=== PATIENT | female | born 1955 | race Caucasian/White ===

== ENCOUNTER 2018-11-23 19:50 | Observation (INO) ==
[2018-11-23] MEDS ORDERED: Furosemide 20 MG/2 ML VIAL IVP ONE (22:32)
[2018-11-23 22:59] LABS: Basophils # 0.1 K/mcL (0.0-0.2); Basophils % 0.9 %; Eosinophils # 0.2 K/mcL (0.0-0.6); Eosinophils % 3.2 %; Hematocrit 23.5 % (35.3-44.9); Hemoglobin 6.7 g/dL (11.5-15.4); Immature Granulocytes % 0.7 % (0-4); Lymphocytes # 1.5 K/mcL (0.6-4.6); Lymphocytes % 27.4 %; Mean Corpuscular HGB Conc 28.5 g/dL (31.6-35.5); Mean Corpuscular Hemoglobin 23.6 pg (28.0-33.3); Mean Corpuscular Volume 82.7 fL (83.0-100.0); Mean Platelet Volume 9.4 fL (9.4-12.4); Monocytes # 0.6 K/mcL (0.0-1.3); Monocytes % 10.5 %; Neutrophils # 3.2 K/mcL (1.6-8.9); Platelet Count 293 K/mcL (140-400); Red Blood Count 2.84 M/mcL (3.82-4.97); Red Cell Distribution Width 16.3 % (11.5-14.5); Segmented Neutrophils % 57.3 %
[2018-11-23 23:12] LABS: Prothrombin Time 10.8 Seconds (9.4-12.1)
[2018-11-23] MEDS ORDERED: Albuterol 2.5 MG/3 ML NEBULIZER IH PRN (23:16)
[2018-11-23 23:18] LABS: Alanine Aminotransferase 18 Units/L (7-52); Albumin 3.9 g/dL (3.5-5.7); Albumin/Globulin Ratio 1.5 (1.1-2.2); Alkaline Phosphatase 80 Units/L (34-104); Aspartate Amino Transferase 17 Units/L (13-39); BUN/Creatinine Ratio 15 (6-26); Bilirubin,Direct 0.1 mg/dL (0.0-0.2); Bilirubin,Indirect 0.4 mg/dL (0.0-1.2); Bilirubin,Total 0.5 mg/dL (0.3-1.0); Blood Urea Nitrogen 12 mg/dL (8-23); Calcium 8.5 mg/dL (8.6-10.3); Carbon Dioxide 24 mEq/L (23-29); Chloride 104 mEq/L (98-107); Globulin 2.6 g/dL (2.4-3.5); Glucose 99 mg/dL (70-105); Osmolality,Calculated 290 (280-300); Potassium 3.5 mEq/L (3.5-5.1); Sodium 140 mEq/L (136-145); Total Protein 6.5 g/dL (6.4-8.9); eGFR For Non-African Americans > 60 (> 60)
[2018-11-23] MEDS: Pantoprazole 40 MG in 0.9 % Sodium Chloride Mini Bag 100 ML IVC SCH (23:20)
--- NOTE | 2018-11-23 23:20 | Internal Med History&Physical ---
Date of Encounter: 11/23/18 Time of Encounter: 23:18 Internal Medicine - H&P: HPI Chief complaint: low Hgb Admitted From: Hospital to Hospital Transfer Plans for Post Hospital Care: Home History of present illness: Lizeth Arellano is a 63-year-old woman who reports a history of gastric ulcer and H. pylori in the past who presents on transfer from [facility] where she went to upon recommendation by her PCP after finding her to have a low hemoglobin at 6.2. At the time she arrived [facility] her hemoglobin was now 5.8 with the rest of her labs unremarkable. She was given 1 unit of red blood cells prior to her transfer over here. On arrival she tells me she feels well and has no complaints. She does admit to feeling notably more fatigued and tired over the past few weeks but denies abdominal pain. She states that she has had multiple episodes of coffee-ground emesis over the past couple of weeks to months but never sought medical attention for it. She denies melena. Past Med Surg Social Fam HX - Past Medical History Medical history: GERD, GI bleed, hypertension, thyroid disease, other Psychiatric history: anxiety, bipolar, depression, PTSD - Past Surgical History Surgical History: appendectomy, cholecystectomy, hysterectomy Additional surgical history: bilateral hip replacement - Social History Smoking Status: Former smoker Smokeless Tobacco Status: No Alcohol use: none Drug use: none - Family History Father Living Status: Internal Medicine - H&P: Meds Levothyroxine [Synthroid] 75 mcg PO 0630 09/20/17 [History] Lisinopril/Hydrochlorothiazide [Zestoretic 20-25 mg Tablet] 1 tab PO DAILY 09/20/17 [History] Metoprolol [Lopressor] 50 mg PO DAILY 09/20/17 [History] Tramadol HCl [Ultram] 50 mg PO Q6H PRN 09/20/17 [History] Trazodone HCl 300 mg PO HS 09/20/17 [History] lamoTRIgine [Lamotrigine] 200 mg PO BID 09/20/17 [History] Docusate [Colace] 200 mg PO BID 14 Days #28 capsule 01/15/18 [Rx] Ibuprofen 800 mg PO 1-3XD PRN #42 tablet 01/15/18 [Rx] OxyCODONE/APAP 5/325 [Percocet 5/325 MG] 2 each PO Q6HR PRN 7 Days #56 tablet 01/15/18 [Rx] Albuterol Sulfate [Ventolin Hfa] 90 mcg IH PRN PRN 11/23/18 [History] Budesonide/Formoterol 80/4.5 [Symbicort 80/4.5] 2 puff IH BID 11/23/18 [History] Gabapentin [Gralise] 300 mg PO DAILY 11/23/18 [History] Loratadine [Allergy Relief] 10 mg PO DAILY 11/23/18 [History] Pramipexole [Mirapex] 0.5 mg PO HS 11/23/18 [History] Allergy/AdvReac Type Severity Reaction Status Date / Time Penicillins Allergy Swelling Verified 12/31/17 12:00 of Lip/Tongue/Throat Sulfa (Sulfonamide Allergy Swelling Verified 12/31/17 12:00 Antibiotics) of Lip/Tongue/Throat All Systems PM: A 10-system review of systems was performed and is negative for pertinent findings except as documented above in the HPI. - Constitutional Vitals: Temp Pulse Resp BP Pulse Ox 99.1 F 77 14 175/91 97 11/23/18 21:55 11/23/18 21:55 11/23/18 21:55 11/23/18 22:17 11/23/18 22:19 Exam: Vitals: Reviewed General: well-developed white female in no acute distress. Skin: warm and supple. HEENT: Moist mucous membranes. + conjunctivae pallor. Neck: No lymphadenopathy. No JVD. No carotid bruits. No palpable thyroid. Chest: Normal thoracic expansion. Normal breath sounds. Clear to auscultation. Heart: Normal S1 & S2; rhythmic. No rubs or murmurs. Abdomen: Non-distended, soft and non-tender to palpation. No peritoneal reaction. Extremities: No clubbing, cyanosis. 1+ edema. No calf tenderness. Normal distal pulses. Neurological: Awake, alert and oriented to person, place and time. No focal deficits. Psych: Affect appropriate. Internal Med - H&P Results - Labs CBC & Chem 7: 11/23/18 22:49 Labs: Short CBC 11/23/18 Range/Units 22:49 WBC 5.6 (4.3-11.1) K/mcL Hgb 6.7 L (11.5-15.4) g/dL Hct 23.5 L (35.3-44.9) % Plt Count 293 (140-400) K/mcL - Assessment and plan (1) Symptomatic anemia Current Visit: Yes Status: Acute Assessment and plan: Secondary to upper GI bleed as reported by the patient but never sought medical attention. Hgb s/p 1pRBC is 6.7. Will order another unit of blood and recheck her values in the morning. Start PPI drip. Consult GI in the morning and keep NPO in the interim. (2) HTN (hypertension) Current Visit: Yes Status: Acute Assessment and plan: Poorly controlled as the patient reports poor adherence. Will continue to monitor. Will give her 1 dose of furosemide 20mg as she has peripheral edema, just received a unit of blood and is quite hypertensive. Home oral medications can be resumed as of tomorrow. Qualifiers: Hypertension type: essential hypertension Qualified Code(s): I10 - Essential (primary) hypertension (3) COPD (chronic obstructive pulmonary disease) Current Visit: Yes Status: Chronic Assessment and plan: Will continue daily LABA/ICS and DYLAN prn. States that she quit smoking as her new year's resolution. Continued counseling and reinforcement given. Qualifiers: COPD type: unspecified COPD Qualified Code(s): J44.9 - Chronic obstructive pulmonary disease, unspecified (4) DVT prophylaxis Current Visit: Yes Status: Acute Assessment and plan: IPC ordered. - Time Spent With Patient Total time spent is greater than 50% in coordination of care (as documented) at patient's floor/unit and/or counseling patient: Greater than 35 minutes
[2018-11-23 23:38] LABS: Anisocytosis 1+ (Not Present); Hypochromasia Present (Not Present); Platelet Estimate Normal (Normal)
[2018-11-23 23:39] LABS: Microcytosis Present (Not Present)
[2018-11-23] MEDS ORDERED: 0.9 % Sodium Chloride 250 ML ONE (23:39)
[2018-11-24] MEDS: lamoTRIgine 100 MG TABLET PO SCH ×2 (02:01→20:05)
[2018-11-24] MEDS: traZODone 50 MG TABLET PO SCH ×2 (02:01→20:05)
[2018-11-24] MEDS: Pantoprazole 40 MG in 0.9 % Sodium Chloride Mini Bag 100 ML IVC SCH ×2 (05:06→08:44)
[2018-11-24 06:35] LABS: Basophils # 0.1 K/mcL (0.0-0.2); Basophils % 1.1 %; Eosinophils # 0.2 K/mcL (0.0-0.6); Eosinophils % 3.2 %; Hematocrit 26.7 % (35.3-44.9); Hemoglobin 7.8 g/dL (11.5-15.4); Immature Granulocytes % 0.6 % (0-4); Lymphocytes # 1.4 K/mcL (0.6-4.6); Lymphocytes % 26.8 %; Mean Corpuscular HGB Conc 29.2 g/dL (31.6-35.5); Mean Corpuscular Volume 82.2 fL (83.0-100.0); Mean Platelet Volume 9.6 fL (9.4-12.4); Monocytes # 0.6 K/mcL (0.0-1.3); Monocytes % 10.7 %; Neutrophils # 3.1 K/mcL (1.6-8.9); Platelet Count 286 K/mcL (140-400); Red Blood Count 3.25 M/mcL (3.82-4.97); Red Cell Distribution Width 15.9 % (11.5-14.5); Segmented Neutrophils % 57.6 %
[2018-11-24] MEDS: Acetaminophen 325 MG TABLET PO PRN ×2 (06:47→21:59)
[2018-11-24] MEDS: Budesonide/Formoterol 80/4.5 MDI IH SCH ×2 (07:46→20:17)
[2018-11-24] MEDS: *HR* OxyCODONE/APAP 5/325 TABLET PO PRN ×3 (08:42→23:05)
[2018-11-24] MEDS: Loratadine 10 MG TABLET PO SCH (08:42)
[2018-11-24] MEDS: Ondansetron 4 MG/2 ML VIAL IVP PRN ×2 (08:53→15:12)
--- NOTE | 2018-11-24 12:40 | Gastroenterology Consult Note ---
Date of Encounter: 11/24/18 Time of Encounter: 12:30 - Assessment and plan (1) Symptomatic anemia Current Visit: Yes Status: Acute Assessment and plan: Patient has severe microcytic anemia along with the on-and-off vomiting of the blood and also dysphagia. Does has large hiatal hernia. Recommend the doing an EGD to rule out the peptic ulcer disease/esophagitis/peptic stricture. Follow H&H agree with transfusion. Pt advised not to have any NSAID and if she needs anything then take plain Tylenol. - Time Spent With Patient Total time spent is greater than 50% in coordination of care (as documented) at patient's floor/unit and/or counseling patient: GI History of Present Illness - Data of Consult Requesting Physician: Kanwal Pearson MD - Consult Narrative History of present illness: 63-year-old woman who reports a history of gastric ulcer and H. pylori in the past who presents on transfer from [facility] where she went to upon recommendation by her PCP after finding her to have a low hemoglobin at 6.2. At the time she arrived [facility] her hemoglobin was now 5.8 with the rest of her labs unremarkable. She was given 1 unit of red blood cells prior to her transfer over here. Vomiting on and off since 2017 ,sometimes the vomitus will have blood .she vomited large amount of blood 2 weeks ago and again last week. Last couple of days she has been feeling very weak and tired. Per patient she takes Motrin for her arthritis and also she complained of food sometime hanging in her throat. Denies any blood in the stool. Does admit of having some tenderness in the epigastric and right upper quadrant area and does feel like some cramps more like in the form of charley horses in upper abdomen. had EGD and colonoscopy done in 2017 EGD showed a large hiatal hernia and a small ulcer and colonoscopy showed internal hemorrhoids and a small polyp Past Med Surg Social Fam HX - Past Medical History Medical history: GERD, GI bleed, hypertension, thyroid disease, other Psychiatric history: anxiety, bipolar, depression, PTSD - Past Surgical History Surgical History: appendectomy, cholecystectomy, hysterectomy Additional surgical history: bilateral hip replacement - Social History Smoking Status: Former smoker Smokeless Tobacco Status: No Alcohol use: none Drug use: none - Family History Father Living Status: Review of Systems: GI: as per [facility] [place] GENERAL: has some chills. feeling weak and tired EYES: denies yellow discoloration ENT: difficulty swallowing CARDIO: denies chest pain, palpitations RESP: Shortness of breath with exertion : has change in color of urine and smell NEURO: Generalized weakness HEME: Denies any bruising MS: Has joint pain due to arthritis and taking ibuprofen. DERM: We will have sometime itching or rash on the upper chest and neck area PSYCH: has anxiety - Constitutional Vitals: Temp Pulse Resp BP Pulse Ox 98.1 F 76 16 156/95 97 11/24/18 10:04 11/24/18 10:04 11/24/18 10:04 11/24/18 10:04 11/24/18 10:04 Exam: CONSTITUTIONAL:alert, no acute distress.HEAD:normocephalic.EYES:no jaundice.NECK:no obvious swelling.HEART:regular rate and rhythm, no murmurs.LUNGS:bilateral good air entry.ABDOMEN:non distended, soft, mild epigastric right upper quadrant tanderness, no masses pulpable, no organomegaly. Large surgical scar of gallbladder surgeryRECTAL EXAM:Deferred.EXTREMITIES:no clubbing, cyanosis or edema.SKIN:no stigmata of chronic liver disease. Large tattoo on the right shoulderNEUROLOGIC:no obvious focal defect. Results - Labs CBC & Chem 7: 11/24/18 05:54 11/23/18 22:49 Labs: Last Result Calcium 8.5 mg/dL (8.6-10.3) L 11/23/18 22:49 Entire Visit Hgb 7.8 g/dL (11.5-15.4) L 11/24/18 05:54 Hct 26.7 % (35.3-44.9) L 11/24/18 05:54 PT 10.8 Seconds (9.4-12.1) 11/23/18 22:49 Total Bilirubin 0.5 mg/dL (0.3-1.0) 11/23/18 22:49 AST 17 Units/L (13-39) 11/23/18 22:49 ALT 18 Units/L (7-52) 11/23/18 22:49 - ABG ABG results: PT/INR, D-dimer PT 10.8 Seconds (9.4-12.1) 11/23/18 22:49 Consult Discharge Plan - Plan Referrals: Krystle Ruiz [Primary Care Provider] -
--- NOTE | 2018-11-24 12:48 | Anesthesia Evaluation PreOp ---
Date of Encounter: 11/24/18 Time of Encounter: 13:06 - Past History Planned Operation: EGD Cardiac History: Denies any Significant Hx (ds) Pulmonary History: Former smoker SUPERVISOR ADVICE History: Other (Anxiety/Depression, PTSD) Other Medical History: Thyroid, GERD (Hx H.Pylori, GI Bleed,) Anesthesia History: No Prior Anesthetic Complications, Past Anesthesia (Appy, Estephania, Hyster, B-Hyster) Alcohol Use: none Drug use: none Medications and Allergies Levothyroxine [Synthroid] 75 mcg PO 0630 09/20/17 [History] Lisinopril/Hydrochlorothiazide [Zestoretic 20-25 mg Tablet] 1 tab PO DAILY 08/24 [History] Metoprolol [Lopressor] 50 mg PO DAILY 09/20/17 [History] Tramadol HCl [Ultram] 50 mg PO Q6H PRN 09/20/17 [History] Trazodone HCl 300 mg PO HS 09/20/17 [History] lamoTRIgine [Lamotrigine] 200 mg PO BID 09/20/17 [History] Docusate [Colace] 200 mg PO BID 14 Days #28 capsule 01/15/18 [Rx] Ibuprofen 800 mg PO 1-3XD PRN #42 tablet 01/15/18 [Rx] OxyCODONE/APAP 5/325 [Percocet 5/325 MG] 2 each PO Q6HR PRN 7 Days #56 tablet 01/15/18 [Rx] Albuterol Sulfate [Ventolin Hfa] 90 mcg IH PRN PRN 11/23/18 [History] Budesonide/Formoterol 80/4.5 [Symbicort 80/4.5] 2 puff IH BID 11/23/18 [History] Gabapentin [Gralise] 300 mg PO DAILY 11/23/18 [History] Loratadine [Allergy Relief] 10 mg PO DAILY 11/23/18 [History] Pramipexole [Mirapex] 0.5 mg PO HS 11/23/18 [History] Allergy/AdvReac Type Severity Reaction Status Date / Time Penicillins Allergy Swelling Verified 12/31/17 12:00 of Lip/Tongue/Throat Sulfa (Sulfonamide Allergy Swelling Verified 12/31/17 12:00 Antibiotics) of Lip/Tongue/Throat - Meds/Allergy Pre-op Review Medications Reviewed: Yes Allergies Reviewed: Yes Beta Blockers on Current Med List: No Anesthesia Results - Labs 11/24/18 05:54 11/23/18 22:49 Laboratory Result - Imaging EKG: report reviewed (53bpm - SINUS BRADYCARDIA MINIMAL VOLTAGE CRITERIA FOR LVH Electronically Signed On 01-01-2018 7:20:00 EDT by Marvin Kahn MD), image reviewed Anesthesia Exam Vital Signs Temp Pulse Resp BP Pulse Ox 11/24/18 12:47 98.0 F 71 16 138/77 99 11/24/18 10:04 98.1 F 76 16 156/95 97 11/24/18 07:47 16 98 11/24/18 06:47 97.7 F 72 16 108/62 96 11/24/18 02:47 98.4 F 86 18 123/78 100 11/24/18 00:30 98.7 F 92 16 156/82 100 11/24/18 00:15 98.8 F 77 16 142/85 97 11/23/18 22:19 97 11/23/18 22:17 175/91 11/23/18 21:55 99.1 F 77 14 178/94 97 Intake and Output 11/23/18 11/24/18 11/24/18 23:59 07:59 15:59 Intake Total 450 / 450 100 / 100 Output Total 650 / 650 1999 / 1999 Balance -200 / -200 -1900 / -1900 Intake: IV Fluids 100 / 100 100 / 100 Protonix 40 MG In 0.9 % Sodium 100 / 100 100 / 100 Chloride (Mini-Bag +) 100 ML @ 20 mls/hr IVC .Q5H [facility] Rx#: [id number] Blood Product 350 / 350 Rbcs Leuko Poor As-1 Unit 350 / 350 [id number] Output: Urine 650 / 650 1999 Other: Meal npo # Voids 1 2 Weight 98.3 kg Blood Glucose* 101 99 Height: 5'7" Weight: 216# BMI = 34 NPO (# of Hours): MNoc - HEENT Pupil (Motor): Pupils equal, EOMI Mallampati: III Teeth: Edentulous Oral Opening: Greater than 3 - SUPERVISOR ADVICE LOC: Oriented SUPERVISOR ADVICE Motor: Normal RUE, Normal LUE, Normal RLE, Normal LLE, Normal Face SUPERVISOR ADVICE Sensory: Normal: RUE, LUE, RLE, LLE, Face - Cardiac Rhythm: Regular Murmur: None JVD: No - Pulmonary Breath Sounds: bilateral Clear Respiratory Effort: Symmetrical Anesthesia Assess/Plan ASA Score: 3 Level of consciousness: Cooperative, Oriented, Tranquil Anesthetic Plan: MAC Monitoring Plan: Standard Monitors Recovery Plan: PACU Anes Supervising Prov Stmt: PT seen/evaluated R&B Discussed questions answered and consent obtained. Freddy Lewis MD
--- NOTE | 2018-11-24 12:50 | Internal Med Progress Note ---
Hospitalist Progress Note - Encounter Date of Encounter: 11/24/18 Time of Encounter: 09:00 - Subjective Interval History: Patient feels better after transfusion. Denies nausea, abdominal pain, dizziness, or shortness of breath. In no acute distress. Vital signs stable - Exam Vitals: Temp Pulse Resp BP Pulse Ox 98.0 F 71 16 138/77 99 11/24/18 12:47 11/24/18 12:47 11/24/18 12:47 11/24/18 12:47 11/24/18 12:47 Exam: Vitals: Reviewed General: well-developed white female in no acute distress. Skin: warm and supple. HEENT: Moist mucous membranes. + conjunctivae pallor. Neck: No lymphadenopathy. No JVD. No carotid bruits. No palpable thyroid. Chest: Normal thoracic expansion. Normal breath sounds. Clear to auscultation. Heart: Normal S1 & S2; rhythmic. No rubs or murmurs. Abdomen: Non-distended, soft and non-tender to palpation. No peritoneal reaction. Extremities: No clubbing, cyanosis. 1+ edema. No calf tenderness. Normal distal pulses. Neurological: Awake, alert and oriented to person, place and time. No focal deficits. Psych: Affect appropriate. - Assessment and Plan (1) Symptomatic anemia Current Visit: Yes Status: Acute Assessment and Plan: Improved after transfusion. Suspect GI bleed. Previous lab in 2017 suggest iron deficiency. - Continue nothing by mouth, IV PPI - Closely monitor vitals and H&H - GI consult saw patient (2) HTN (hypertension) Current Visit: Yes Status: Acute Assessment and Plan: Consider resume home medication when patient started diet (3) COPD (chronic obstructive pulmonary disease) Current Visit: Yes Status: Chronic Assessment and Plan: Will continue daily LABA/ICS and DYLAN prn. States that she quit smoking as her new year's resolution. Continued counseling and reinforcement given. No signs of exacerbation. (4) DVT prophylaxis Current Visit: Yes Status: Acute Assessment and Plan: EPCDs DVT Prophylaxis: EPCDs - Time Spent with Patient Total time spent is greater than 50% in coordination of care (as documented) at patient's floor/unit and/or counseling patient: 30 min 25 - 35 minutes Plan of Care Discussed with: patient Internal Medicine: Result - Labs CBC & Chem 7: 11/24/18 05:54 11/23/18 22:49 Labs: Short CBC 11/23/18 11/24/18 Range/Units 22:49 05:54 WBC 5.6 5.3 (4.3-11.1) K/mcL Hgb 6.7 L 7.8 L (11.5-15.4) g/dL Hct 23.5 L 26.7 L (35.3-44.9) % Plt Count 293 286 (140-400) K/mcL Neutrophils # 3.2 3.1 (1.6-8.9) K/mcL BMP 11/23/18 22:49 Sodium 140 Potassium 3.5 Chloride 104 Carbon Dioxide 24 BUN 12 Creatinine 0.80 Glucose 99 Calcium 8.5 L Liver Function 11/23/18 Range/Units 22:49 Total Bilirubin 0.5 (0.3-1.0) mg/dL Direct Bilirubin 0.1 (0.0-0.2) mg/dL AST 17 (13-39) Units/L ALT 18 (7-52) Units/L Alkaline Phosphatase 80 (34-104) Units/L Albumin 3.9 (3.5-5.7) g/dL - ABG Interpretation ABG results: PT/INR, D-dimer PT 10.8 Seconds (9.4-12.1) 11/23/18 22:49 Consult Discharge Plan - Plan Referrals: Krystle Ruiz [Primary Care Provider] - (2) HTN (hypertension) Qualifiers: Qualified Code(s): I10 - Essential (primary) hypertension (3) COPD (chronic obstructive pulmonary disease) Qualifiers: Qualified Code(s): J44.9 - Chronic obstructive pulmonary disease, unspecified
[2018-11-24] MEDS ORDERED: Lidocaine -MPF 2% 2 ML VIAL ONE (12:52)
[2018-11-24] MEDS ORDERED: *HR* Propofol 200 MG/20 ML VIAL IVP ONE (12:52)
[2018-11-24] MEDS ORDERED: Tetracaine/Benzocaine/Butamben 1 SPRAY AEROSOL MM ONE (13:16)
[2018-11-24] MEDS: Simethicone 40 MG/0.6 ML MLS IR ONE (13:21)
[2018-11-24] MEDS ORDERED: SODIUM CHLORIDE/NAHCO3/KCL/PEG 4,000 ML SOLN.RECON PO ONE (14:09)
--- NOTE | 2018-11-24 16:25 | Anesthesia Evaluation Post Op ---
Date of Encounter: 11/24/18 Time of Encounter: 13:25 - Vital Signs Vital Signs: Vital Signs/O2 Sat/Glucose, Most Current Temp Pulse Resp BP Pulse Ox 11/24/18 14:15 98.3 F 67 16 156/92 98 11/24/18 14:00 97.9 F 16 135/83 94 11/24/18 12:47 98.0 F 71 16 138/77 99 - Lungs Lungs: Clear Ascult./Percussion - Airway Airway: Non-obstructed - Cardiovascular Regular Rate - Mental Status Mental Status: Alert & Oriented, Answers Appropriately - Pain Pain Scale: 0 Pain Scale used: Numeric (1 - 10) - Nausea Vomiting Nausea Vomiting: Not Present - Hydration Hydration: NPO, Has not voided - Discharge PostOp Status: Transfer Patient to floor Anes Supervising Prov Stmt: Pt seen/evalutaed, VSS and has met criteira for discharge to floor. - MD Joshua
[2018-11-24 16:53] LABS: Hematocrit 29.4 % (35.3-44.9); Hemoglobin 8.6 g/dL (11.5-15.4)
[2018-11-24] MEDS: Pantoprazole 40 MG VIAL IVP SCH (20:05)
[2018-11-24] MEDS ORDERED: traZODone 50 MG TABLET PO SCH (21:00)
[2018-11-24] MEDS ORDERED: lamoTRIgine 100 MG TABLET PO SCH (21:00)
[2018-11-25] MEDS: Pantoprazole 40 MG VIAL IVP SCH ×2 (05:48→17:01)
[2018-11-25] MEDS: Ondansetron 4 MG/2 ML VIAL IVP PRN ×3 (05:53→22:54)
[2018-11-25 07:07] LABS: Basophils % 0.9 %; Eosinophils # 0.2 K/mcL (0.0-0.6); Eosinophils % 3.8 %; Hemoglobin 7.6 g/dL (11.5-15.4); Immature Granulocytes % 0.2 % (0-4); Lymphocytes # 1.4 K/mcL (0.6-4.6); Lymphocytes % 32.4 %; Mean Corpuscular HGB Conc 29.2 g/dL (31.6-35.5); Mean Platelet Volume 9.4 fL (9.4-12.4); Monocytes # 0.5 K/mcL (0.0-1.3); Monocytes % 10.6 %; Neutrophils # 2.2 K/mcL (1.6-8.9); Platelet Count 244 K/mcL (140-400); Red Blood Count 3.17 M/mcL (3.82-4.97); Red Cell Distribution Width 15.9 % (11.5-14.5); Segmented Neutrophils % 52.1 %
[2018-11-25 07:22] LABS: BUN/Creatinine Ratio 10 (6-26); Blood Urea Nitrogen 8 mg/dL (8-23); Calcium 8.4 mg/dL (8.6-10.3); Carbon Dioxide 24 mEq/L (23-29); Chloride 110 mEq/L (98-107); Glucose 89 mg/dL (70-105); Osmolality,Calculated 288 (280-300); Potassium 3.7 mEq/L (3.5-5.1); Sodium 140 mEq/L (136-145); eGFR For Non-African Americans > 60 (> 60)
[2018-11-25] MEDS: *HR* OxyCODONE/APAP 5/325 TABLET PO PRN ×3 (07:52→22:54)
[2018-11-25] MEDS: Loratadine 10 MG TABLET PO SCH (07:52)
[2018-11-25] MEDS ORDERED: Furosemide 20 MG/2 ML VIAL IVP ONE (09:34)
[2018-11-25] MEDS ORDERED: 0.9 % Sodium Chloride 250 ML ONE (10:13)
[2018-11-25] MEDS: Budesonide/Formoterol 80/4.5 MDI IH SCH ×2 (10:20→20:36)
[2018-11-25] MEDS ORDERED: Simethicone 40 MG/0.6 ML MLS IR ONE (12:29)
[2018-11-25] MEDS ORDERED: Propofol 500 MG/50 ML INFUS..BTL ONE (12:30)
[2018-11-25] MEDS ORDERED: 0.9 % Sodium Chloride 500 ML IVC SCH (12:30)
[2018-11-25] MEDS ORDERED: Lidocaine -MPF 2% 2 ML VIAL ONE (12:32)
--- NOTE | 2018-11-25 13:06 | Anesthesia Evaluation PreOp ---
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 Other Medical History: Thyroid, Other (anxiety/depression) Anesthesia History: No Prior Anesthetic Complications, Past Anesthesia Alcohol Use: none Drug use: none Medications and Allergies Levothyroxine [Synthroid] 75 mcg PO 0630 09/20/17 [History] Lisinopril/Hydrochlorothiazide [Zestoretic 20-25 mg Tablet] 1 tab PO DAILY 09/20/17 [History] Metoprolol [Lopressor] 50 mg PO DAILY 09/20/17 [History] Tramadol HCl [Ultram] 50 mg PO Q6H PRN 09/20/17 [History] Trazodone HCl 300 mg PO HS 09/20/17 [History] lamoTRIgine [Lamotrigine] 200 mg PO BID 09/20/17 [History] Docusate [Colace] 200 mg PO BID 14 Days #28 capsule 01/15/18 [Rx] Ibuprofen 800 mg PO 1-3XD PRN #42 tablet 01/15/18 [Rx] OxyCODONE/APAP 5/325 [Percocet 5/325 MG] 2 each PO Q6HR PRN 7 Days #56 tablet 01/15/18 [Rx] Albuterol Sulfate [Ventolin Hfa] 90 mcg IH PRN PRN 11/23/18 [History] Budesonide/Formoterol 80/4.5 [Symbicort 80/4.5] 2 puff IH BID 11/23/18 [History] Gabapentin [Gralise] 300 mg PO DAILY 11/23/18 [History] Loratadine [Allergy Relief] 10 mg PO DAILY 11/23/18 [History] Pramipexole [Mirapex] 0.5 mg PO HS 11/23/18 [History] Allergy/AdvReac Type Severity Reaction Status Date / Time Penicillins Allergy Swelling Verified 12/31/17 12:00 of Lip/Tongue/Throat Sulfa (Sulfonamide Allergy Swelling Verified 12/31/17 12:00 Antibiotics) of Lip/Tongue/Throat - Meds/Allergy Pre-op Review Medications Reviewed: Yes Allergies Reviewed: Yes Beta Blockers on Current Med List: No Anesthesia Results - Labs 11/25/18 06:47 11/25/18 06:47 - Imaging EKG: report reviewed (12/31/2017 SINUS BRADYCARDIA MINIMAL VOLTAGE CRITERIA FOR LVH) Anesthesia Exam Vital Signs/O2 Sat/Glucose, Most Recent Temp Pulse Resp BP Pulse Ox 98.1 F 65 16 164/88 98 11/25/18 12:27 11/25/18 12:27 11/25/18 12:27 11/25/18 12:27 11/25/18 12:27 Blood Glucose* 87 Height: 5'7''/1.7m Weight: 216 lbs/98.3 kg NPO (# of Hours): 8 Pain Scale: 0 Pain Scale Used: Numeric (1 - 10) - HEENT Pupil (Motor): EOMI Mallampati: III Teeth: Edentulous Denture Type: Upper: Complete, Lower: Complete Oral Opening: Greater than 3 - AERIAL SURVEY TECHNICIAN LOC: Oriented AERIAL SURVEY TECHNICIAN Motor: Normal RUE, Normal LUE, Normal RLE, Normal LLE, Normal Face AERIAL SURVEY TECHNICIAN Sensory: Normal: RUE, LUE, RLE, LLE, Face - Cardiac Rhythm: Regular Murmur: None - Pulmonary Breath Sounds: bilateral Clear Respiratory Effort: Symmetrical Anesthesia Assess/Plan ASA Score: 3 Level of consciousness: Cooperative, Oriented, Tranquil Anesthetic Plan: MAC Monitoring Plan: Standard Monitors
[2018-11-25] MEDS: Simethicone 40 MG/0.6 ML MLS IR ONE (13:12)
--- NOTE | 2018-11-25 13:26 | Internal Med Progress Note ---
Hospitalist Progress Note - Encounter Date of Encounter: 11/25/18 Time of Encounter: 09:00 - Subjective Interval History: Patient denies melena or coffee ground emesis. Denies dizziness, nausea. Has a mild shortness of breath. Vitals are stable. - Exam Vitals: Temp Pulse Resp BP Pulse Ox 98.1 F 65 16 143/78 98 11/25/18 12:27 11/25/18 12:27 11/25/18 13:14 11/25/18 13:14 11/25/18 12:27 Exam: Vitals: Reviewed General: well-developed white female in no acute distress. Skin: warm and supple. HEENT: Moist mucous membranes. + conjunctivae pallor. Neck: No lymphadenopathy. No JVD. No carotid bruits. No palpable thyroid. Chest: Normal thoracic expansion. Normal breath sounds. Clear to auscultation. Heart: Normal S1 & S2; rhythmic. No rubs or murmurs. Abdomen: Non-distended, soft and non-tender to palpation. No peritoneal reaction. Extremities: No clubbing, cyanosis. 1+ edema. No calf tenderness. Normal distal pulses. Neurological: Awake, alert and oriented to person, place and time. No focal deficits. Psych: Affect appropriate. - Assessment and Plan (1) Symptomatic anemia Current Visit: Yes Status: Acute Assessment and Plan: Improved after transfusion. Suspect GI bleed. Previous lab in 2017 suggest iron deficiency. - Continue nothing by mouth, IV PPI - Closely monitor vitals and H&H. Hgb 7.6 from yesterday 8.6, will transfuse another unit of PRBC - GI consult saw patient, EGD done, no active bleeding identified. Plan for colonoscopy today (2) HTN (hypertension) Current Visit: Yes Status: Acute Assessment and Plan: Consider resume home medication when patient started diet (3) COPD (chronic obstructive pulmonary disease) Current Visit: Yes Status: Chronic Assessment and Plan: Will continue daily LABA/ICS and DYLAN prn. States that she quit smoking as her new year's resolution. Continued counseling and reinforcement given. No signs of exacerbation. (4) DVT prophylaxis Current Visit: Yes Status: Acute Assessment and Plan: EPCDs - Time Spent with Patient Total time spent is greater than 50% in coordination of care (as documented) at patient's floor/unit and/or counseling patient: 30 min 25 - 35 minutes Plan of Care Discussed with: patient Internal Medicine: Result - Labs CBC & Chem 7: 11/25/18 06:47 11/25/18 06:47 Labs: Short CBC 11/24/18 11/25/18 Range/Units 16:26 06:47 WBC 4.2 L (4.3-11.1) K/mcL Hgb 8.6 L 7.6 L (11.5-15.4) g/dL Hct 29.4 L 26.0 L (35.3-44.9) % Plt Count 244 (140-400) K/mcL Neutrophils # 2.2 (1.6-8.9) K/mcL BMP 11/25/18 06:47 Sodium 140 Potassium 3.7 Chloride 110 H Carbon Dioxide 24 BUN 8 Creatinine 0.80 Glucose 89 Calcium 8.4 L - ABG Interpretation ABG results: PT/INR, D-dimer PT 10.8 Seconds (9.4-12.1) 11/23/18 22:49 Consult Discharge Plan - Plan Referrals: Krystle Ruiz [Primary Care Provider] - (2) HTN (hypertension) Qualifiers: Hypertension type: essential hypertension Qualified Code(s): I10 - Essential (primary) hypertension (3) COPD (chronic obstructive pulmonary disease) Qualifiers: COPD type: unspecified COPD Qualified Code(s): J44.9 - Chronic obstructive pulmonary disease, unspecified
[2018-11-25 16:17] LABS: Hematocrit 31.4 % (35.3-44.9)
[2018-11-25 16:19] LABS: Hemoglobin 9.4 g/dL (11.5-15.4)
[2018-11-25] MEDS: traZODone 50 MG TABLET PO SCH (20:00)
[2018-11-25] MEDS: lamoTRIgine 100 MG TABLET PO SCH (20:02)
[2018-11-26] MEDS: Pantoprazole 40 MG VIAL IVP SCH (05:33)
[2018-11-26 06:09] LABS: Hematocrit 29.7 % (35.3-44.9); Hemoglobin 9.1 g/dL (11.5-15.4)
[2018-11-26] MEDS: *HR* OxyCODONE/APAP 5/325 TABLET PO PRN ×2 (06:33→13:27)
[2018-11-26] MEDS: Budesonide/Formoterol 80/4.5 MDI IH SCH (07:36)
[2018-11-26] MEDS: Loratadine 10 MG TABLET PO SCH (10:12)
[2018-11-26] MEDS: lamoTRIgine 100 MG TABLET PO SCH ×2 (10:13→10:19)
[2018-11-26 11:03] VITALS: BP 126/76
--- NOTE | 2018-11-26 13:31 | Discharge Summary ---
- NOTES TO OUTPATIENT PROVIDER Notes to Outpatient Provider: F/U with GI at outpatient. Date of Encounter: 11/26/18 Time of Encounter: 09:00 - Discharge Diagnosis (1) Symptomatic anemia Priority: Primary Status: Acute (2) HTN (hypertension) Priority: Secondary Status: Acute Qualifiers: Hypertension type: essential hypertension Qualified Code(s): I10 - Essential (primary) hypertension (3) COPD (chronic obstructive pulmonary disease) Priority: Secondary Status: Chronic Qualifiers: COPD type: unspecified COPD Qualified Code(s): J44.9 - Chronic obstructive pulmonary disease, unspecified (4) DVT prophylaxis Priority: Secondary Status: Acute Hospital course: Ms. Arellano is a 63 year old female Discharge discussed with: patient - Time Spent with Patient Total time spent providing and/or coordinating discharge services: 40 minutes Less than 30 minutes - Discharge Medications Home Medications: Levothyroxine [Synthroid] 75 mcg PO 0630 09/20/17 [History] Lisinopril/Hydrochlorothiazide [Zestoretic 20-25 mg Tablet] 1 tab PO DAILY 09/20/17 [History] Trazodone HCl 300 mg PO HS 09/20/17 [History] lamoTRIgine [Lamotrigine] 200 mg PO BID 09/20/17 [History] Albuterol Sulfate [Ventolin Hfa] 2 puff IH Q6H PRN 11/23/18 [History] Budesonide/Formoterol 80/4.5 [Symbicort 80/4.5] 2 puff IH BID 11/23/18 [History] Gabapentin [Gralise] 300 mg PO DAILY 11/23/18 [History] Loratadine [Allergy Relief] 10 mg PO DAILY 11/23/18 [History] Pramipexole [Mirapex] 0.5 mg PO HS 11/23/18 [History] Omeprazole [PriLOSEC] 20 mg PO BIDAC 30 Days #60 cap 11/26/18 [Rx] Sucralfate [Carafate] 1 gm PO BID 30 Days #600 mls 11/26/18 [Rx] Allergies/Adverse Reactions: Allergy/AdvReac Type Severity Reaction Status Date / Time Penicillins Allergy Swelling Verified 12/31/17 12:00 of Lip/Tongue/Throat Sulfa (Sulfonamide Allergy Swelling Verified 12/31/17 12:00 Antibiotics) of Lip/Tongue/Throat Date of admission: 11/23/18 22:04 Primary care physician: Krystle Ruiz Consults: 11/23/18 22:33 Consult to Gastroenterology [CONS] Routine Consulting Provider: [facility] Rachell Reason for Consult: 63 year old woman with a history of gastric ulcer who has had multiple episodes of coffee ground emesis over the past weeks but never sought medical attention. Now found to have a Hgb of 5.8 at [place]. Call Completed: No Discharging clinician: Chas Medina Anticipated date of discharge: 11/26/18 - Constitutional Vitals: Temp Pulse Resp BP Pulse Ox 97.6 F 75 15 126/76 97 11/26/18 11:00 11/26/18 11:00 11/26/18 11:00 11/26/18 11:00 11/26/18 11:00 Exam: Vitals: Reviewed General: well-developed white female in no acute distress. Skin: warm and supple. HEENT: Moist mucous membranes. + conjunctivae pallor. Neck: No lymphadenopathy. No JVD. No carotid bruits. No palpable thyroid. Chest: Normal thoracic expansion. Normal breath sounds. Clear to auscultation. Heart: Normal S1 & S2; rhythmic. No rubs or murmurs. Abdomen: Non-distended, soft and non-tender to palpation. No peritoneal reaction. Extremities: No clubbing, cyanosis. 1+ edema. No calf tenderness. Normal distal pulses. Neurological: Awake, alert and oriented to person, place and time. No focal deficits. Psych: Affect appropriate. - Patient Status Disposition: Home, Self-Care Condition: Good Functional capacity at discharge: independent ambulation Overall status at discharge: patient is back to baseline - Discharge Instructions Follow Up With: Krystle Ruiz [Primary Care Provider] - - Diet and Activity Activity: increase activity as tolerated Diet: advance to your usual diet, low fat, low cholesterol, low salt diet
== END 2018-11-26 15:04 | disposition home or self-care (01) ==
LOC: 3ANU
PROVIDERS: ADMIT Internal Medicine; ATTEND Internal Medicine